=== PATIENT | female | born 1970 | race Caucasian/White ===

== ENCOUNTER 2021-09-11 10:11 | Emergency (ER) | payer OTHER, SELFPAY ==
[2021-09-11 10:14] VITALS: BP 150/93; PULSE 61; RESP 14; TEMP 36.7; O2SAT 99
--- NOTE | 2021-09-11 10:54 | ED.EXTPRO ---
HPI - Extremity Problem General Chief complaint: Extremity Problem,Nontraumatic Stated complaint: varicose vein Time Seen by Provider: 09/11/21 10:12 Source: patient Mode of arrival: EMS Limitations: no limitations History of Present Illness HPI Narrative: This is a 51-year-old female that presents to the emergency department for a bleeding varicose vein. Reports she had a scab on her left lower leg that she picked off a couple of days ago. She is able to control bleeding at that time. Reports today she pulled up her pant leg to show a coworker the area. Started to have bleeding from her varicose vein once again. They were unable to control bleeding, so called EMS. Pressure dressing is now in place without active bleeding. Patient does not have any other complaints. Related Data Allergies Allergy/AdvReac Type Severity Reaction Status Date / Time No Known Allergies Allergy Verified 09/11/21 10:17 Review of Systems Review of Systems: CONSTITUTIONAL: Denies fever SKIN: Reports varicose vein All systems reviewed & are unremarkable except as noted in HPI and below PMFSH Past Medical History Medical History (Updated 09/11/21 @ 11:20 by Jaelyn Hughes PA-C) History of varicose veins Social History Social History (Updated 09/11/21 @ 10:56 by Jaelyn Hughes PA-C) Smoking status: Never smoker Exam Narrative: GENERAL: Well-appearing, well-nourished, and in no acute distress. HEAD: Normocephalic, atraumatic. EYES: EOMI. EXTREMITIES: Normal range of motion. No edema or erythema. Varicose vein present on the left lower extremity, slowly oozing blood. No surrounding erythema or warmth. Normal DP pulse SKIN: Warm, dry, no rash. NEURO: No focal deficits. Alert and oriented x3. PSYCH: Normal mood and affect Course Vital Signs Vital signs: Vital Signs Temperature 98.0 F 09/11/21 10:14 Pulse Rate 61 09/11/21 10:14 Respiratory Rate 14 09/11/21 10:14 Blood Pressure 150/93 H 09/11/21 10:14 Pulse Oximetry 99 09/11/21 10:14 Oxygen Delivery Room Air 09/11/21 10:14 Temperature 98.0 F 09/11/21 10:14 Pulse Rate 61 09/11/21 10:14 Respiratory Rate 14 09/11/21 10:14 Blood Pressure 150/93 H 09/11/21 10:14 Pulse Oximetry 99 09/11/21 10:14 Oxygen Delivery Room Air 09/11/21 10:14 Procedures Other Procedure Procedure 1: Other Procedure: Left lower extremity varicose vein oozing blood. The area was cleansed with normal saline and pressure dressing reapplied with Telfa, Kerlix and Coban. Patient tolerated procedure well, no complications MDM - Extremity (Nontraumatic) MDM Narrative Medical decision making narrative: Patient presents to the emergency department for bleeding from a varicose vein. Bleeding was controlled with a pressure dressing. Patient instructed on continued care. She is to follow-up with her primary care doctor. She was given warnings to return to the ER Critical Care Time Critical Care Time Critical Care Time: No Discharge Plan Discharge Clinical Impression: Bleeding from varicose veins of left lower extremity Patient Disposition: Home, Self-Care Condition: Stable Instructions: Venous Insufficiency (DC) Additional Instructions: Return to the emergency department if you experience fever, redness or swelling of your wound, abnormal drainage from your wound, bleeding you are unable to control, or any other symptoms that are concerning to you. Try and take it easy today. Elevate the leg. You may change your bandage tomorrow night. Be sure to reapply a nonstick bandage first. Follow-up with your primary care doctor for wound check and referral to vascular surgery for your varicose veins Follow-up/Referrals: Patricia,Mehrdad Yepez MD [Primary Care Provider] - 3 Days
--- NOTE | 2021-09-11 11:17 | PC.NURSE ---
Care assumed of pt at this time.
[2021-09-11 11:33] VITALS: PULSE 78; RESP 16; O2SAT 98
== END 2021-09-11 11:33 | disposition home or self-care (01) ==
PROVIDERS: Emergency Provider Emergency Medicine; PCP Internal Medicine
DX: I83.892 Varicose veins of left lower extremity with other complications (principal)
CPT/HCPCS: 99282

== ENCOUNTER → 2022-03-02 16:36 | Outpatient (CLI) | payer OTHER, SELFPAY ==
--- NOTE | ~2022-03-02 | MM_ITS ---
EXAMINATION: MM screening [facility] BI w александр HISTORY: Screening mammogram TECHNIQUE: Craniocaudal and mediolateral oblique 3-D tomosynthesis images were obtained and synthetic 2-D images were generated. CAD analysis was submitted and interpreted. COMPARISON: 02/20/2018, 08/03/2013, 02/04/2011, 06/19/2010 BREAST PARENCHYMAL COMPOSITION: There are scattered areas of fibroglandular density. FINDINGS: No suspicious mass, calcification, or architectural distortion are identified in either alex ast to suggest malignancy. There has been no suspicious interval change. IMPRESSION: 1. No mammographic evidence of malignancy. 2. Recommend routine screening mammography in one year. BI-RADS Category 1: Negative Reviewed, dictated and finalized at location A. ING ENGINEER
== END ==
PROVIDERS: PCP Internal Medicine; Visit Provider Internal Medicine
DX: Z12.31 Encounter for screening mammogram for malignant neoplasm of breast (principal)
CPT/HCPCS: 77063; 77067

== ENCOUNTER 2023-11-24 18:24 | Emergency (ER) | payer OTHER, SELFPAY ==
[2023-11-24 18:32] VITALS: BP 154/82; PULSE 78; RESP 18; TEMP 36.4; O2SAT 100
--- NOTE | 2023-11-24 20:53 | ED.BACK ---
HPI - Back Pain/Injury General Chief Complaint: Back Pain/Injury Stated Complaint: back pain Time Seen by Provider: 11/24/23 20:35 Source: patient and family Mode of arrival: ambulatory Limitations: no limitations History of Present Illness HPI Narrative: 53 YEARS OLD WHITE FEMALE COMPLAINING OF RIGHT LOWER BACK RIGHT FLANK PAIN RADIATING TO RIGHT BUTTOCK STARTED OVER 2 WEEKS AGO. GOT WORSE OVER THE LAST 2 DAYS, ASSOCIATED WITH INTERMITTENT NAUSEA. PAIN WORSE WITH CERTAIN MOVEMENT AND CERTAIN POSITION, BETTER WITH FEAR-BGS-OACSHLN TYLENOL, IBUPROFEN, AND MASSAGE. PATIENT WORKS IN A [employer], IN STANDING POSITION, WAS CONSTANT TWISTING HER TRUNK TO MOVE HEAVY OBJECT FROM 1 SIDE TO ANOTHER SITE. BEEN DOING THAT FOR THE LAST 35 YEARS. HISTORY OF BILATERAL HIP REPLACEMENT. SHE DENIES ANY FEVER, CHILLS, VOMITING, DIARRHEA, CONSTIPATION, ABDOMINAL PAIN, CHEST PAIN OR SHORTNESS OF BREATH. Related Data Allergies Allergy/AdvReac Type Severity Reaction Status Date / Time No Known Allergies Allergy Verified 11/24/23 18:25 Review of Systems Review of Systems: All systems reviewed & are unremarkable except as noted in HPI and below PMFSH Past Medical History Medical History History of varicose veins Social History Social History Smoking status: Never smoker Exam Narrative: GENERAL APPEARANCE: WELL-DEVELOPED, WELL-NOURISHED SKIN: NORMAL COLOR HEAD: NORMOCEPHALIC, NONTRAUMATIC EYES: CLEAR CONJUNCTIVA ENT: OROPHARYNX NORMAL, EARS NORMAL, NOSE NORMAL NECK: SUPPLE, NONTENDER CHEST AND RESPIRATORY: AIRWAY PATENT, NO RESPIRATORY DISTRESS, NO ACCESSORY MUSCLE USE HEART: REGULAR RATE/RHYTHM ABDOMEN: SOFT, NONTENDER, NO ORGANOMEGALY, QUIET BOWEL SOUNDS VASCULAR: NORMAL PERIPHERAL PULSES, NORMAL CAPILLARY REFILL. MUSCULOSKELETAL: DIFFUSE TENDERNESS MID THORACIC BACK, MID LUMBAR AREA AND RIGHT BUTTOCK, NO BRUISES, NO SWELLING OR RASH, SEVERE LIMITED RANGE OF MOTION ACROSS THE LUMBAR AREA. NEUROLOGIC: ALERT AND ORIENTED ?3, SCIENTIFIC ILLUSTRATOR IS NORMAL TESTED, NO GROSS MOTOR DEFICIT Course Vital Signs Vital signs: Vital Signs Temperature 36.4 C 11/24/23 18:32 Pulse Rate 78 11/24/23 18:32 Respiratory Rate 18 11/24/23 18:32 Blood Pressure 154/82 H 11/24/23 18:32 Pulse Oximetry 100 08/29/24 18:32 Temperature 36.4 C 11/24/23 18:32 Pulse Rate 78 11/24/23 18:32 Respiratory Rate 18 11/24/23 18:32 Blood Pressure 154/82 H 11/24/23 18:32 Pulse Oximetry 100 11/24/23 18:32 MDM - Back Pain/Injury MDM Narrative Medical decision making narrative: DIFFERENTIAL DIAGNOSIS INCLUDE MUSCULOSKELETAL PAIN, PATIENT HAD HISTORY OF ARTHRITIS AND BILATERAL HIP REPLACEMENT, BEEN WORKING IN STANDING POSITION WITH TWISTING HER TRUNK BACK AND FORTH FOR 35 YEARS. LEADING TO WHAT SHE HAVE RIGHT NOW OF MUSCLE ABUSE AND OVERUSE. NO BLOOD WORKUP OR IMAGING REQUIRED AT THIS TIME. PATIENT WILL BE DISCHARGED ON ANTI-INFLAMMATORY MEDICINE, MUSCLE RELAXANT AND MASSAGE AND PHYSICAL THERAPY. Differential Diagnosis Differential diagnosis: Likely other ( ABOVE) Critical Care Time Critical Care Time Critical Care Time: No Discharge Plan Discharge Clinical Impression: Back pain Patient Disposition: Home, Self-Care Condition: Stable Instructions: Back Pain (ED) Additional Instructions: RETURN IF SYMPTOMS ARE WORSENING , CALL YOUR FAMILY PHYSICIAN FOR APPOINTMENT, TAKE TYLENOL NEEDED FOR ACHES AND PAIN, CONTINUE HOME MEDICATIONS. MASSAGE HEATING PAD Prescriptions: New diclofenac sodium 75 mg tablet,delayed release (DR/EC)
[2023-11-24] MEDS: HYDROcodone/acetaminophen (*CRX) 5-325 MG TABLET 1 TAB PO (21:06)
[2023-11-24] MEDS: KETOROLAC (*BKC) 60 MG/2 ML VIAL IM (21:07)
== END 2023-11-24 21:36 | disposition home or self-care (01) ==
LOC: ANHED 21:15
PROVIDERS: Emergency Provider Emergency Medicine; PCP Internal Medicine
DX: M54.50 Low back pain, unspecified (principal); M19.90 Unspecified osteoarthritis, unspecified site; Z96.643 Presence of artificial hip joint, bilateral
CPT/HCPCS: 96372; 99283; A9270; J1885

== ENCOUNTER 2024-08-27 15:45 | Outpatient (CLI) | payer OTHER, SELFPAY ==
--- NOTE | ~2024-08-27 | MM_ITS ---
PROCEDURE: MM SCREENING [facility] BI W SHAYE INDICATION: Asymptomatic, referred for screening mammogram COMPARISON: 03/02/2022 through 04/05/2009 TECHNIQUE: Digital breast tomosynthesis craniocaudal and mediolateral oblique views of Both breasts w ere obtained with computer-aided detection to assist in interpretation of the study. FINDINGS: There are scattered areas of fibroglandular density. No focal dominant mass, architectural distortion, or suspicious microcalcifications are identified. There are no features to suggest malignancy. IMPRESSION: No evidence of malignancy in the breast. Recommend continued screening mammography BI-RADS 1, NEGATIVE Reviewed, dictated and finalized at location B.
== END 2024-08-27 15:46 | disposition home or self-care (01) ==
LOC: MICIMG 15:46
PROVIDERS: PCP Internal Medicine; Visit Provider Internal Medicine
DX: Z12.31 Encounter for screening mammogram for malignant neoplasm of breast (principal)
CPT/HCPCS: 77063; 77067